=== PATIENT | male | born 1985 | race Caucasian/White ===

== ENCOUNTER 2021-10-29 20:42 | Emergency (ER) | payer MEDICAID, SELFPAY ==
[2021-10-29 22:17] LABS: MANUAL DIFF FLAG NO
[2021-10-29 22:25] LABS: Basophils Percent Auto 0.2 % (0-2); Hematocrit 34.9 % (42.0-52.0); Hemoglobin 11.1 g/dl (14.0-18.0); Imm Gran Abs Auto 0.09 X10*3/uL (0.00-0.03); Imm Gran Pct Auto 0.5 % (0.0-0.4); Lymphocytes Absolute Auto 0.7 X10*3/uL (1.2-4.9); Lymphocytes Percent Auto 4.2 % (20-40); Mean Corpuscular HGB Conc 31.8 g/dl (31.0-36.0); Mean Corpuscular Hemoglobin 24.7 pg (27.0-33.0); Mean Corpuscular Volume 77.7 fL (80.0-98.0); Mean Platelet Volume 10.4 fL (9.4-12.4); Monocytes Absolute Auto 1.2 X10*3/uL (0.1-1.2); Monocytes Percent Auto 7.1 % (2-11); Neutrophils Absolute Auto 15.3 x10*3/uL (2.0-8.3); Platelet Count 263 X10*3/uL (160-400); Red Blood Count 4.49 X10*6/uL (4.60-5.80); White Blood Count 17.4 X10*3/uL (4.8-10.8)
[2021-10-29 22:39] LABS: Ethanol < 10 mg/dL
[2021-10-29 22:42] LABS: Alanine Aminotransferase 19 U/L (0-40); Albumin Level 4.3 g/dL (3.5-5.0); Alkaline Phosphatase 58 U/L (39-117); Anion Gap 12 (12-20); Aspartate Amino Transferase 28 U/L (5-37); Bilirubin Total 0.4 mg/dL (0.0-1.0); Blood Urea Nitrogen 11 mg/dL (9-16); Calcium 9.7 mg/dL (8.4-10.2); Carbon Dioxide 27 mmol/L (22-29); Chloride 107 mmol/L (96-108); Estimated Glomerular Filt Rate > 60; Glucose Random 136 mg/dL (60-115); Potassium 4.4 mmol/L (3.3-5.1); Sodium 142 mmol/L (135-145); Total Protein 7.4 g/dL (6.5-8.0)
[2021-10-30 00:05] VITALS: BP 122/80; PULSE 92; RESP 20; TEMP 36.4; O2SAT 100; BMI 25.1
[2021-10-30 01:04] LABS: COVID-19 Test Negative (Negative)
--- NOTE | 2021-10-30 01:29 | ED_ITS ---
HPI - Psych General Chief Complaint: ETOH/Substance Use Stated Complaint: withdrawals Time Seen by Provider: 10/30/21 00:22 Source: patient Mode of arrival: ambulatory Limitations: no limitations History of Present Illness HPI Narrative: Patient history of anxiety, substance Abuse use IV fentanyl using about 4 bundles a day did use it earlier today now feel in withdrawal denies any suicidal ideation or homicidal feeling vomited few times wants to go to detox feels very anxious never been to detox in the past. No fever no cough no diarrhea no abdominal pain Related Data Allergies Allergy/AdvReac Type Severity Reaction Status Date / Time Penicillins [PENICILLINS] Allergy Severe HIVES, SOB Unverified 10/30/21 00:09 acetaminophen [From TYLENOL] Allergy Intermediate HIVES, SOB Unverified 10/30/21 00:09 ibuprofen [From ADVIL] Allergy Unknown HIVES/SOB Unverified 10/30/21 00:09 Advil Allergy Unknown shortness Uncoded 10/30/21 00:09 of breath Review of Systems Review of Systems: Yes all other systems are reviewed and are negative [facility] Past Medical History Medical History Substance abuse Social History Social History Advance Directives: No Advance Directives Information Provided: No Physical Exam Vital Signs: Vital Signs: Last Vital Signs Temp 97.5 F 10/30/21 00:05 Pulse 92 10/30/21 00:05 Resp 20 10/30/21 00:05 BP 122/80 10/30/21 00:05 Pulse Ox 100 10/30/21 00:05 BMI result Body Mass Index 25.1 Appearance: Alert. Oriented X3. Very anxious Eyes: PERRLA, No Nystagmus no pallor or icterus ENT: Pharynx normal. Oral Mucosa moist Neck: Normal inspection. Neck supple. CVS: Normal heart rate and rhythm. Pulses normal. Respiratory: No respiratory distress. Equal air entry bilateral, no wheezing/rales/rhonchi Abdomen: Soft and nontender. Bowel sounds are present, no mass palpable, no CVA tenderness Skin: Skin warm and dry. Normal skin color. Normal skin turgor. Extremities: No lower extremity edema. No calf tenderness Neuro: Oriented X 3. No motor deficit. No sensory deficit.No cerebellar signs , cranial nerves II-XII intact MDM - Psych MDM Narrative Medical decision making narrative: Patient history of fentanyl abuse very anxious and withdrawn with vomiting nausea. Lab workup showed leukocytosis secondary to poor oral intake and vomiting and volume loss patient clinically not septic. Will check lactic acid level and blood culture anyway because of IV drug use. Will consult detox in the morning Differential Diagnosis Differential diagnosis: Likely substance abuse Lab Data Attestation: I reviewed the patient's lab results. Result diagrams: 10/29/21 22:09 10/29/21 22:09 Labs: Lab Results 10/29/21 10/29/21 10/29/21 Range/Units 22:09 22:09 22:09 WBC 17.4 H (4.8-10.8) X10*3/uL RBC 4.49 L (4.60-5.80) X10*6/uL Hgb 11.1 L (14.0-18.0) g/dl Hct 34.9 L (42.0-52.0) % MCV 77.7 L (80.0-98.0) fL MCH 24.7 L (27.0-33.0) pg MCHC 31.8 (31.0-36.0) g/dl RDW 16.0 (11.0-16.0) % Plt Count 263 (160-400) X10*3/uL MPV 10.4 (9.4-12.4) fL Immature Gran % (Auto) 0.5 H (0.0-0.4) % Neut % (Auto) 88.0 H (45-73) % Lymph % (Auto) 4.2 L (20-40) % [place] % (Auto) 7.1 (2-11) % Eos % (Auto) 0.0 (0-4) % Baso % (Auto) 0.2 (0-2) % Lymph # (Auto) 0.7 L (1.2-4.9) X10*3/uL [place] # (Auto) 1.2 (0.1-1.2) X10*3/uL Eos # (Auto) 0.0 (0.0-0.4) X10*3/uL Baso # (Auto) 0.0 (0.0-0.2) X10*3/uL Abs Immat Gran (auto) 0.09 H (0.00-0.03) X10*3/uL Absolute Neuts (auto) 15.3 H (2.0-8.3) x10*3/uL Absolute Nucleated RBC 0.000 (0.0-0.012) X10*3/uL Nucleated RBC % (auto) 0.0 (0.0-0.2) /100WBC Sodium 142 (135-145) mmol/L Potassium 4.4 (3.3-5.1) mmol/L Chloride 107 (96-108) mmol/L Carbon Dioxide 27 (22-29) mmol/L Anion Gap 12 (12-20) BUN 11 (9-16) mg/dL Creatinine 1.10 (0.5-1.4) mg/dL Estim Creat Clear Calc TNP Estimated GFR > 60 Random Glucose 136 H (60-115) mg/dL Calcium 9.7 (8.4-10.2) mg/dL Total Bilirubin 0.4 (0.0-1.0) mg/dL AST 28 (5-37) U/L ALT 19 (0-40) U/L Alkaline Phosphatase 58 (39-117) U/L Total Protein 7.4 (6.5-8.0) g/dL Albumin 4.3 (3.5-5.0) g/dL Ethyl Alcohol < 10 mg/dL COVID-19 (KIM) (Negative) COVID-19 Clin Com 10/30/21 Range/Units 00:42 WBC (4.8-10.8) X10*3/uL RBC (4.60-5.80) X10*6/uL Hgb (14.0-18.0) g/dl Hct (42.0-52.0) % MCV (80.0-98.0) fL MCH (27.0-33.0) pg MCHC (31.0-36.0) g/dl RDW (11.0-16.0) % Plt Count (160-400) X10*3/uL MPV (9.4-12.4) fL Immature Gran % (Auto) (0.0-0.4) % Neut % (Auto) (45-73) % Lymph % (Auto) (20-40) % [place] % (Auto) (2-11) % Eos % (Auto) (0-4) % Baso % (Auto) (0-2) % Lymph # (Auto) (1.2-4.9) X10*3/uL [place] # (Auto) (0.1-1.2) X10*3/uL Eos # (Auto) (0.0-0.4) X10*3/uL Baso # (Auto) (0.0-0.2) X10*3/uL Abs Immat Gran (auto) (0.00-0.03) X10*3/uL Absolute Neuts (auto) (2.0-8.3) x10*3/uL Absolute Nucleated RBC (0.0-0.012) X10*3/uL Nucleated RBC % (auto) (0.0-0.2) /100WBC Sodium (135-145) mmol/L Potassium (3.3-5.1) mmol/L Chloride (96-108) mmol/L Carbon Dioxide (22-29) mmol/L Anion Gap (12-20) BUN (9-16) mg/dL Creatinine (0.5-1.4) mg/dL Estim Creat Clear Calc Estimated GFR Random Glucose (60-115) mg/dL Calcium (8.4-10.2) mg/dL Total Bilirubin (0.0-1.0) mg/dL AST (5-37) U/L ALT (0-40) U/L Alkaline Phosphatase (39-117) U/L Total Protein (6.5-8.0) g/dL Albumin (3.5-5.0) g/dL Ethyl Alcohol mg/dL COVID-19 (KIM) Negative (Negative) COVID-19 Clin Com See Note Discharge Plan Discharge Clinical Impression: Opiate withdrawal, Anxiety
[2021-10-30] MEDS: LORazepam 2 MG/ML VIAL IVPUSH ×2 (01:38→08:09)
[2021-10-30] MEDS: 0.9 % Sodium Chloride 1,000 ML 999 ML IV ×2 (01:41→08:08)
[2021-10-30 02:05] LABS: Lactic Acid 1.5 mmol/L (0.5-2.0)
--- NOTE | 2021-10-30 02:27 | HO.SUDE ---
CARE team met with pt to complete SUDE 36 year old male who self presented to ED endorsing symptoms of opiate withdrawal and seeking detox. At the time of this evaluation no urine had been collected for a tox screen. Ethyl alcohol level unremarkable. He endorsed daily IV fentanyl and cocaine use, approximately 4 bundles. He reported that he started using again 2 months ago after 5 years in recovery. During that time he was on suboxone maintenance (8mg BID) through [facility] and was also working with a baseball coach. Prior to 5 years ago he was using heroin and cocaine, noting that fentanyl is new to him, and that he used to use 2 or 3 bags each day. He stated that with fentanyl he has found that he needs to use every 2 or so hours to avoid intense cravings and reported onset of withdrawal symptoms. His last use was approx 7 hours prior to arrival to the hospital. He denied having any history of detox or residential ABDULKADIR treatment. He denied having any psychiatric diagnoses or treatment history. Family history was not discussed. Pt will remain in ED overnight pending recovery consultation in the morning for detox placement.
[2021-10-30 03:19] VITALS: BP 136/80; PULSE 88; RESP 16; O2SAT 100
[2021-10-30 04:00] VITALS: RESP 16
[2021-10-30 06:00] VITALS: RESP 16
[2021-10-30] MEDS: LORazepam 1 MG TABLET PO ×3 (07:55→14:45)
[2021-10-30 08:29] VITALS: BP 115/78; PULSE 82; RESP 20; O2SAT 95
[2021-10-30] MEDS: ondansetron HCL 4 MG/2 ML VIAL IVPUSH (08:29)
[2021-10-30 08:30] LABS: Amphetamine Screen Urine Not Detected (Not Detect); Barbiturates, Urine Not Detected (Not Detect); Benzodiazepines Screen Urine Not Detected (Not Detect); Cannabinoid Screen Urine POSITIVE (Not Detect); Cocaine Screen Urine POSITIVE (Not Detect); Fentanyl, urine POSITIVE (Not Detect); Opiate Screen Urine POSITIVE (Not Detect); Phencyclidine Screen Urine Not Detected (Not Detect)
[2021-10-30 08:30] LABS: MANUAL DIFF FLAG NO
[2021-10-30 08:39] LABS: Basophils Percent Auto 0.4 % (0-2); Eosinophils Absolute Auto 0.1 X10*3/uL (0.0-0.4); Eosinophils Percent Auto 0.5 % (0-4); Hemoglobin 10.6 g/dl (14.0-18.0); Imm Gran Abs Auto 0.03 X10*3/uL (0.00-0.03); Imm Gran Pct Auto 0.3 % (0.0-0.4); Lymphocytes Absolute Auto 1.8 X10*3/uL (1.2-4.9); Lymphocytes Percent Auto 17.8 % (20-40); Mean Corpuscular HGB Conc 32.1 g/dl (31.0-36.0); Mean Corpuscular Hemoglobin 24.7 pg (27.0-33.0); Mean Corpuscular Volume 76.9 fL (80.0-98.0); Mean Platelet Volume 10.1 fL (9.4-12.4); Monocytes Absolute Auto 0.8 X10*3/uL (0.1-1.2); Neutrophils Absolute Auto 7.2 x10*3/uL (2.0-8.3); Platelet Count 234 X10*3/uL (160-400); Red Blood Count 4.29 X10*6/uL (4.60-5.80); Red Cell Distribution Width 16.2 % (11.0-16.0); White Blood Count 9.9 X10*3/uL (4.8-10.8)
[2021-10-30] MEDS: hydrOXYzine HCL 50 MG TABLET PO (12:01)
--- NOTE | 2021-10-30 12:35 | MHC.RECOVSUP ---
Recovery Support note: Patient is a 36 year old [place]guillan speaking male who presented to [facility] ED due to opiate withdrawal and interest in going to detox. Patient reports he was previously on Suboxone however this was about two months ago. Patient reports last using five or so hours prior to arriving at the hospital. Patient expresses interest in going to [facility]. This selling underwriter conducted an [facility] bedsearch. One available bed located at [facility]. Patient information faxed for review and this selling underwriter currently awaits a follow up call. Discussed case with patient's ED provider and charge account identification clerk.
[2021-10-30 14:44] VITALS: BP 128/78; PULSE 78
[2021-10-30] MEDS: cloNIDine HCL 0.1 MG TABLET PO (14:44)
[2021-10-30] MEDS: hydrOXYzine HCL 25 MG TABLET PO (14:45)
== END 2021-10-30 15:00 | disposition home or self-care (01) ==
PROVIDERS: Internal Medicine; Emergency Provider Emergency Medicine; PCP Internal Medicine
DX: F10.239 Alcohol dependence with withdrawal, unspecified (principal); F41.1 Generalized anxiety disorder; F43.0 Acute stress reaction; Y90.0 Blood alcohol level of less than 20 mg/100 ml; Z20.822 Contact with and (suspected) exposure to COVID-19; Z79.899 Other long term (current) drug therapy
CPT/HCPCS: 36415; 80053; 80307; 82077; 83605; 85025; 87040; 87635; 96361; 96374; 96375; 96376; 99285; J2060; J2405

== ENCOUNTER → 2021-12-28 11:55 | Outpatient (REF) | payer MEDICAID, SELFPAY ==
--- NOTE | 2021-12-28 12:02 | ECG_ITS ---
Test Reason : QT PROLONGNATION Blood Pressure : / mmHG Vent. Rate : 069 BPM Atrial Rate : 069 BPM P-R Int : 118 ms QRS Dur : 090 ms QT Int : 436 ms P-R-T Axes : 115 133 111 degrees QTc Int : 467 ms Suspect limb lead reversal, interpretation assumes no reversal Normal sinus rhythm Lateral infarct , age undetermined Abnormal ECG No previous ECGs available Referred By: Ann Balbuena Electronically Signed By:Danny Guthrie
== END ==
LOC: HO.CARD 11:55
PROVIDERS: PCP Internal Medicine; Visit Provider Family Medicine
DX: R94.31 Abnormal electrocardiogram [ECG] [EKG] (principal); Z79.891 Long term (current) use of opiate analgesic
CPT/HCPCS: 93005

== ENCOUNTER 2024-11-02 21:41 | Emergency (ER) | payer MEDICAID, SELFPAY ==
[2024-11-02 21:54] VITALS: BP 129/85; PULSE 95; RESP 18; O2SAT 99
[2024-11-02 22:05] VITALS: BP 148/80; PULSE 120; O2SAT 99; BMI 24.7
[2024-11-02 22:14] LABS: MANUAL DIFF FLAG NO
[2024-11-02 22:15] LABS: Basophils Percent Auto 0.3 % (0-2); Eosinophils Absolute Auto 0.1 X10*3/uL (0.0-0.4); Eosinophils Percent Auto 0.9 % (0-4); Hematocrit 33.5 % (42.0-52.0); Hemoglobin 10.9 g/dl (14.0-18.0); Imm Gran Abs Auto 0.04 X10*3/uL (0.00-0.03); Imm Gran Pct Auto 0.4 % (0.0-0.4); Lymphocytes Absolute Auto 1.9 X10*3/uL (1.2-4.9); Lymphocytes Percent Auto 18.7 % (20-40); Mean Corpuscular HGB Conc 32.5 g/dl (31.0-36.0); Mean Corpuscular Hemoglobin 25.7 pg (27.0-33.0); Mean Platelet Volume 11.2 fL (9.4-12.4); Monocytes Absolute Auto 0.6 X10*3/uL (0.1-1.2); Monocytes Percent Auto 6.1 % (2-11); Neutrophils Absolute Auto 7.6 x10*3/uL (2.0-8.3); Neutrophils Percent Auto 73.6 % (45-73); Platelet Count 240 X10*3/uL (160-400); Red Blood Count 4.24 X10*6/uL (4.60-5.80); Red Cell Distribution Width 14.3 % (11.0-16.0); White Blood Count 10.3 X10*3/uL (4.8-10.8)
[2024-11-02 22:29] LABS: Alanine Aminotransferase 34 U/L (0-40); Alkaline Phosphatase 47 U/L (39-117); Anion Gap 14 (12-20); Aspartate Amino Transferase 44 U/L (5-37); Bilirubin Total 0.2 mg/dL (0.0-1.0); Blood Urea Nitrogen 21 mg/dL (9-16); Calcium 8.8 mg/dL (8.4-10.2); Carbon Dioxide 22 mmol/L (22-29); Chloride 109 mmol/L (96-108); Creatinine Clr Calc Pharmacy 79.1; Estimated Glomerular Filt Rate > 60; Glucose Random 166 mg/dL (60-115); Potassium 3.9 mmol/L (3.3-5.1); Sodium 141 mmol/L (135-145); Total Protein 6.6 g/dL (6.5-8.0)
--- NOTE | 2024-11-02 22:44 | ED_ITS ---
History of Present Illness General Chief Complaint: Epistaxis Stated Complaint: nose bleed x 20mins Time Seen by Provider: 11/02/24 22:11 History of Present Illness HPI Narrative: Patient is a 39-year-old male was eating ice cream when suddenly felt blood coming out of his nose. Patient had a question up in the nose. Denies any trauma. 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 Patient denies any fever chills. He uses heroin on a daily basis. Denies snorting any cocaine denies starting any oxycodone. Patient denies being on any blood thinners. No systemic complaints. Bleeding has stopped. Related Data Allergies Allergy/AdvReac Type Severity Reaction Status Date / Time Penicillins [PENICILLINS] Allergy Severe HIVES, SOB Verified 11/02/24 22:12 acetaminophen [From TYLENOL] Allergy Intermediate HIVES, SOB Verified 11/02/24 22:12 ibuprofen [From ADVIL] Allergy Unknown HIVES/SOB Verified 11/02/24 22:12 Advil Allergy Unknown shortness Uncoded 11/02/24 22:12 of breath Review of Systems 2 Review of Systems: No fever no chills no chest pain not on blood thinners Yes all other systems are reviewed and are negative PMFSH Past Medical History Attestation statement: The following information was validated with the patient. Medical History Substance abuse Social History Social History Alcohol intake: current Alcohol intake frequency: holidays/special occasions only Patient Tobacco Use Status: Current everyday Tobacco user Smoked in Last 30 Days: No Use of substances other than those prescribed or required for medical reasons: Yes Substance Use Type: Opiates Substance Use Frequency: Weekly Last Used Substance: Hours (ago) Any prior treatment program specific to substance use: Yes Advance Directives: No Advance Directives Information Provided: No Do you have a plan to hurt others: No Plan Physical Exam 2 Vital Signs: Vital Signs: Last Vital Signs Pulse 95 11/02/24 21:54 Resp 18 11/02/24 21:54 BP 129/85 11/02/24 21:54 Pulse Ox 99 11/02/24 21:54 O2 Del Method Room Air 11/02/24 21:54 BMI result Body Mass Index 24.7 Appearance: Alert. Oriented X3. No acute distress. Eyes: Pupils equal, round and reactive to light. ENT: Pharynx normal. Patient's nostril are patent. There is communication between the left and right nostril. 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 There is no gross blood noted. There is only minimal dry blood noted. Posterior pharynx was normal. No blood Neck: Normal inspection. Neck supple. No lymph nodes noted. No crepitus CVS: Normal heart rate and rhythm. Pulses normal. Normal S1 and S2 Respiratory: No respiratory distress. Breath sounds normal. No Wheezing. No rales Abdomen: Soft and nontender. No rigidity. No distention. good BS x4 Skin: Skin warm and dry. Normal skin color. Normal skin turgor. Extremities: No lower extremity edema. Neurovascular intact to all extremities. No Lacerations. No Rash Neuro: Oriented X 3. No motor deficit. No sensory deficit. Moving all extermities. No slurred speech Medical Decision Making Medical Decision Making [facility] Narrative: Patient well-appearing bleeding is already. No history of hypertension patient's hemoglobin is baseline electrolytes are normal reassured will discharge patient home close follow-up on an outpatient Differential Diagnosis Differential Diagnoses: The differential diagnosis associated with the presentation includes Trauma, recreational drug induced, anterior nosebleed, posterior nosebleed Admission/Observation Consideration of admission/observation: Escalation of care including admission/observation considered Lab Data [facility] Lab Attestation statement: I reviewed the patient's lab results. 11/02/24 22:10 11/02/24 22:10 Labs: Lab Results 11/02/24 Range/Units 22:10 WBC 10.3 (4.8-10.8) X10*3/uL RBC 4.24 L (4.60-5.80) X10*6/uL Hgb 10.9 L (14.0-18.0) g/dl Hct 33.5 L (42.0-52.0) % MCV 79.0 L (80.0-98.0) fL MCH 25.7 L (27.0-33.0) pg MCHC 32.5 (31.0-36.0) g/dl RDW 14.3 (11.0-16.0) % Plt Count 240 (160-400) X10*3/uL MPV 11.2 (9.4-12.4) fL Immature Gran % (Auto) 0.4 (0.0-0.4) % Neut % (Auto) 73.6 H (45-73) % Lymph % (Auto) 18.7 L (20-40) % [place] % (Auto) 6.1 (2-11) % Eos % (Auto) 0.9 (0-4) % Baso % (Auto) 0.3 (0-2) % Lymph # (Auto) 1.9 (1.2-4.9) X10*3/uL [place] # (Auto) 0.6 (0.1-1.2) X10*3/uL Eos # (Auto) 0.1 (0.0-0.4) X10*3/uL Baso # (Auto) 0.0 (0.0-0.2) X10*3/uL Abs Immat Gran (auto) 0.04 H (0.00-0.03) X10*3/uL Absolute Neuts (auto) 7.6 (2.0-8.3) x10*3/uL Absolute Nucleated RBC 0.000 (0.0-0.012) X10*3/uL Nucleated RBC % (auto) 0.0 (0.0-0.2) /100WBC Sodium 141 (135-145) mmol/L Potassium 3.9 (3.3-5.1) mmol/L Chloride 109 H (96-108) mmol/L Carbon Dioxide 22 (22-29) mmol/L Anion Gap 14 (12-20) BUN 21 H (9-16) mg/dL Creatinine 1.32 (0.5-1.4) mg/dL Estim Creat Clear Calc 79.1 Estimated GFR > 60 Random Glucose 166 H (60-115) mg/dL Calcium 8.8 D (8.4-10.2) mg/dL Total Bilirubin 0.2 (0.0-1.0) mg/dL AST 44 H (5-37) U/L ALT 34 (0-40) U/L Alkaline Phosphatase 47 (39-117) U/L Total Protein 6.6 (6.5-8.0) g/dL Albumin 4.0 (3.5-5.0) g/dL Social Determinants Patient?s care significantly limited by Social Determinants of Health including: Alcoholism and drug addiction in family and Unemployment Discharge Plan Discharge Clinical Impression: Epistaxis Patient Disposition: Home, Self-Care Instructions: Nosebleed (ED) Referrals: Keyshawn Layne MD [Primary Care Provider] - 11/04/24 Print Language: Uzbek
[2024-11-02 22:58] VITALS: BP 123/76; PULSE 70; RESP 16; TEMP 36.7; O2SAT 99
== END 2024-11-02 23:06 | disposition home or self-care (01) ==
PROVIDERS: Emergency Provider Emergency Medicine Emergency Medical Services; PCP Internal Medicine
DX: R04.0 Epistaxis (principal); F11.10 Opioid abuse, uncomplicated; F17.210 Nicotine dependence, cigarettes, uncomplicated; Z71.51 Drug abuse counseling and surveillance of drug abuser; Z79.899 Other long term (current) drug therapy
CPT/HCPCS: 36415; 80053; 85025; 99284